=== PATIENT | male | born 1985 | race Hispanic/Latino ===

== ENCOUNTER 2016-10-12 14:22 | Emergency (ER) | payer OTHER ==
[2016-10-12 14:42] VITALS: BMI 23.1
[2016-10-12 15:05] VITALS: BP 132/81; PULSE 71; RESP 18; TEMP 98.2; O2SAT 99
--- NOTE | 2016-10-12 15:05 | RAD ---
PROCEDURE: Left Foot Radiographs. HISTORY: foot pain s/p trauma COMPARISON: None. FINDINGS: BONES: Normal. No fracture. JOINTS: Normal. SOFT TISSUES: Normal. OTHER FINDINGS: None. IMPRESSION: Normal left foot radiographs.
--- NOTE | 2016-10-12 15:06 | RAD ---
PROCEDURE: Left Ankle Radiographs. HISTORY: ankle pain s/p trauma COMPARISON: None FINDINGS: BONES: Normal. No fracture. JOINTS: Normal. No osteoarthritis. Ankle mortise maintained. Talar dome intact SOFT TISSUES: Normal. OTHER FINDINGS: None. IMPRESSION: Normal left ankle radiographs.
--- NOTE | 2016-10-12 15:11 | ED PDOC ---
Arrival/HPI - General Chief Complaint: Lower Extremity Problem/Injury Time Seen by Provider: 10/12/16 14:30 Historian: Patient - History of Present Illness Narrative History of Present Illness (Text): 10/12/16 15:07 31yo male who present in ED for left ankle pain/swelling s/p twisting his left ankle this afternoon. He states he twisted his ankle while walking up stairs and then hopped up the remain stairs. States he suddenly became diaphoretic, weak and tired after hopping up the stairs. When he was seen, he states he feels much better. States he only want his ankle to be evaluated. He denies hitting his head anywhere. denies, LOC, nausea, vomiting, chest pain, SOB, any other complaint. Past Medical History - Provider Review Nursing Documentation Reviewed: Yes - Cardiac Hx Cardiac Disorders: No - Pulmonary Hx Respiratory Disorders: No - Neurological Hx Neurological Disorder: No - HEENT Hx HEENT Disorder: No - Renal Hx Renal Disorder: No - Endocrine/Metabolic Hx Endocrine Disorders: No - Hematological/Oncological Hx Blood Disorders: No - Integumentary Hx Dermatological Disorder: No Hx Basal Cell Carcinoma: No - Musculoskeletal/Rheumatological Hx Musculoskeletal Disorders: No - Gastrointestinal Hx Gastrointestinal Disorders: No - Genitourinary/Gynecological Hx Genitourinary Disorders: No - Psychiatric Hx Psychophysiologic Disorder: Yes (ADHD) Hx Substance Use: No Family/Social History - Physician Review Nursing Documentation Reviewed: Yes Family/Social History: Unknown Family HX Smoking Status: Never Smoked Hx Alcohol Use: Yes Frequency of alcohol use: Socially Hx Substance Use: No Allergies/Home Meds Allergies/Adverse Reactions: Allergies No Known Allergies Allergy (Verified 10/12/16 14:42) Home Medications: Home Meds Medication Instructions Recorded Confirmed Amphetamine Salt Combination 15 mg PO TID 10/12/16 10/12/16 [Adderall] Review of Systems - Physician Review All systems were reviewed & negative as marked: Yes - Review of Systems Constitutional: Normal Eyes: Normal ENT: Normal Respiratory: Normal Cardiovascular: Normal Gastrointestinal: Normal Genitourinary Male: Normal Musculoskeletal: Arthralgias (Left ankle) Skin: Normal Neurological: Normal Endocrine: Normal Hemo/Lymphatic: Normal Psychiatric: Normal Physical Exam Vital Signs Reviewed: Yes Vital Signs Temp Pulse Resp BP Pulse Ox 10/12/16 15:04 98.2 F 71 18 132/81 99 03/29/17 15:00 98.2 F 63 19 142/61 98 Temperature: Afebrile Blood Pressure: Normal Pulse: Regular Respiratory Rate: Normal Appearance: Positive for: Well-Appearing, Non-Toxic, Comfortable Pain Distress: None Mental Status: Positive for: Alert and Oriented X 3 - Systems Exam Head: Present: Atraumatic, Normocephalic Pupils: Present: PERRL Extroacular Muscles: Present: EOMI Conjunctiva: Present: Normal Mouth: Present: Moist Mucous Membranes Neck: Present: Normal Range of Motion Respiratory/Chest: Present: Clear to Auscultation, Good Air Exchange. No: Respiratory Distress, Accessory Muscle Use Cardiovascular: Present: Regular Rate and Rhythm, Normal S1, S2. No: Murmurs Abdomen: Present: Normal Bowel Sounds. No: Tenderness, Distention, Peritoneal Signs Back: Present: Normal Inspection Upper Extremity: Present: Normal Inspection. No: Cyanosis, Edema Lower Extremity: Present: Normal Inspection, NORMAL PULSES, Normal ROM, Tenderness (Over left lateral malleolus), Swelling (Over left lateral malleolus) , Neurovascularly Intact. No: Edema, CALF TENDERNESS, Cyanosis, Jaqueline's Sign, Erythema, Deformity, Temperature Abnormalties Neurological: Present: GCS=15, CN II-XII Intact, Speech Normal Skin: Present: Warm, Dry, Normal Color. No: Rashes Psychiatric: Present: Alert, Oriented x 3, Normal Insight, Normal Concentration Medical Decision Making ED Course and Treatment: 10/12/16 15:11 Left ankle/foot xray - No acute fracture/dislocation noted Rinku wrap and air cast placed. Crutches given Pt advised to RICE foot Referred to ortho - Lab Interpretations Lab Results: Lab Results 10/12/16 14:26: POC Glucose (mg/dL) 88 - RAD Interpretation Radiology Orders: 10/12/16 14:37 ANKLE LEFT 3 VIEWS ROUTINE [RAD] Stat FOOT LEFT 3 VIEWS ROUTINE [RAD] Stat - Medication Orders Current Medication Orders: Discontinued Medications Acetaminophen (Tylenol 325mg Tab) 650 mg PO STAT STA Stop: 10/12/16 14:39 Last Admin: 10/12/16 14:43 Dose: 650 MG MAR Pain/Vitals Document 10/12/16 14:43 EQ (Rec: 10/12/16 14:43 EQ [facility] [id number]) Pain Reassessment Is This A Pain ReAssessment? No Disposition/Present on Arrival - Present on Arrival Any Indicators Present on Arrival: No History of DVT/PE: No History of Uncontrolled Diabetes: No Urinary Catheter: No History of Decub. Ulcer: No History Surgical Site Infection Following: None - Disposition Have Diagnosis and Disposition been Completed?: Yes Diagnosis: Ankle sprain, Fracture of navicular bone of foot Disposition: HOME/ ROUTINE Disposition Time: 15:20 Patient Plan: Discharge Patient Problems: Current Active Problems Problem Status Diagnosed Ankle sprain Acute Condition: STABLE Discharge Instructions (ExitCare): Ankle Sprain (ED) Additional Instructions: Rest, Ice, compress and elevate ankle Follow up with [facility]ker/orthopedist Return to ED for any new or worsening symptoms Prescriptions: Ibuprofen [Motrin Tab] 600 mg PO Q6 #20 tab Referrals: PCPNASRIN [Primary Care Provider] - Follow up with primary Michel Garcia MD [Staff Provider] - Follow up with primary Eber Dominguez DPM [Staff Provider] - Follow up with primary
== END 2016-10-12 16:10 | disposition home or self-care (01) ==
LOC: ED 14:22
DX: S93.402A Sprain of unspecified ligament of left ankle, initial encounter (principal); S92.252A Displaced fracture of navicular [scaphoid] of left foot, initial encounter for closed fracture; X50.9XXA Other and unspecified overexertion or strenuous movements or postures, initial encounter; Y93.89 Activity, other specified; Y92.89 Other specified places as the place of occurrence of the external cause